=== PATIENT | male | born 1975 | race Caucasian/White ===

== ENCOUNTER → 2023-12-08 08:18 | Outpatient (CLI) | payer OTHER, MEDICAID, SELFPAY ==
[2023-12-08 09:25] LABS: Influenza A - CEPHEID Flu A NEGATIVE (NEGATIVE); Influenza B - CEPHEID Flu B NEGATIVE (NEGATIVE); Respiratory Syncytial Virus Negative (Negative)
[2023-12-08 09:27] LABS: COVID-19 CEPHEID 4-PLEX PCR Negative (Negative)
== END ==
PROVIDERS: Visit Provider Physician Assistant Surgical
DX: R52 Pain, unspecified (principal); J02.9 Acute pharyngitis, unspecified
CPT/HCPCS: 87635; 87400 ×2; 87420; 0241U; 87070